=== PATIENT | female | born 1950 | race Caucasian/White ===

== ENCOUNTER → 2022-01-27 | Outpatient (CLI) | payer MEDICARE ==
--- NOTE | 2022-01-27 16:59 | KCIC ---
XR CHEST 2V History: Reason: Upper respiratory injection. / Spl. Instructions: Covid positive 01/10, negative 01/25, bronchitis 01/12. / History: Comparison: None. Findings: Hyperinflation. No consolidation or pleural effusion. Normal heart size. No pneumothorax. Impression: 1. No acute cardiopulmonary process. Electronically signed by: Alexy Samuel DO (01/27/2022 4:57 PM) [id number]
== END ==
LOC: KCIC 11:22
PROVIDERS: ATTEND Nurse Practitioner Family
DX: J06.9 Acute upper respiratory infection, unspecified (principal)
CPT/HCPCS: 71046